=== PATIENT | male | born 1970 | race Caucasian/White ===

== ENCOUNTER → 2019-09-20 09:33 | Outpatient (BNVA) | payer OTHER, SELFPAY | PROVIDERS: Family Provider Nurse Practitioner Family; PCP Nurse Practitioner Family; Visit Provider Nurse Practitioner Family | DX: S61.011A Laceration without foreign body of right thumb without damage to nail, initial encounter (principal); X58.XXXA Exposure to other specified factors, initial encounter | CPT/HCPCS: 73140 ==

== ENCOUNTER 2023-05-15 18:25 | Inpatient (IN) | payer OTHER, SELFPAY ==
[2023-05-15 18:52] VITALS: BP 174/90; PULSE 98; RESP 18; TEMP 36.7; O2SAT 96
--- NOTE | 2023-05-15 18:59 | W.ED.PSYCHS ---
HPI - Psych General: Chief Complaint: Psychiatric Symptoms Stated Complaint: etoh, si Time Seen by Provider: 05/15/23 18:29 Source: patient and EMS Mode of arrival: EMS Limitations: no limitations History of Present Illness: 52-year-old male is brought in by EMS for alcohol intoxication along with suicidality. He had told EMS along with his parents that he just no longer want to live anymore and he wants to kill himself he has no specific plan he tells me that he has been severely depressed and needs to get help. Associated symptoms: Reports depression and suicidal ideation Review of Systems Const: Denies: fever(s), chills, body aches or change in appetite ENMT: Denies: throat pain or dental pain Card: Denies: chest pain Resp: Denies: dyspnea GI: Denies: abdominal pain, nausea, vomiting or diarrhea : Denies: dysuria Musc: Denies: neck pain or back pain Skin/Breast: Denies: rash Neuro: Denies: headache(s) Psych: Reports: depression and suicidal ideation [facility] ED PFSH: Medical History Crushing injury of thumb, right Family History Other Diabetes Social History Smoking and tobacco/nicotine status: current every day tobacco/nicotine user Alcohol intake: current Alcohol intake frequency: 0-2 Drinks per Day Alcohol type: beer Physical Exam Const: COMMON NORMALS: no acute distress, patient oriented x3 and healthy appearing HENMT: COMMON NORMALS: normocephalic and atraumatic HEAD & SCALP: normocephalic and atraumatic Neck/C-Spine: COMMON NORMALS: full ROM and supple Chest: COMMONS NORMALS: normal inspection of the chest Resp: COMMON NORMALS: normal respiratory effort Cardio: COMMON NORMALS: regular rate, regular rhythm and No murmurs present (Cardio) RATE: regular rate RHYTHM: regular rhythm Extremity: COMMON NORMALS: normal to inspection and full ROM Neuro: COMMON NORMALS: patient oriented x3, moves all extremities and no focal motor deficits Psych: COMMON NORMALS: mental status grossly normal, Normal thought process present and cooperative MOOD & AFFECT: Yes depressed mood THOUGHT PROCESS: Normal thought process present THOUGHT CONTENT: Yes Suicidality present Skin: COMMON NORMALS: no rashes or lesions noted and no wounds GENERAL SKIN EXAM: no rashes or lesions noted Course Vital Signs: Vital signs: Vital Signs Temperature 98.1 F 05/15/23 18:52 Pulse Rate 98 05/15/23 18:52 Respiratory Rate 18 05/15/23 18:52 Blood Pressure 174/90 05/15/23 18:52 Pulse Oximetry 96 05/15/23 18:52 Oxygen Delivery Me thod Room Air 05/15/23 18:52 MDM - Psych Medical Decision Making Patient presents for suicidal ideation seen also is intoxicated he is a chronic alcoholic patient was placed under 96-hour hold I have put in CIWA orders. I will recheck his alcohol at 11 patient is able to ambulate and hold a conversation at 414 I spoke to the psychiatrist Dr. Matute will admit after second alcohol redraw. Medical Records I reviewed the patient's medical records. Lab Data I reviewed the patient's lab results. 05/15/23 19:37 05/15/23 19:37 Laboratory Results WBC 10.09 10^3/uL (3.29-11.43) 05/15/23 19:37 RBC 4.30 10^6/uL (3.85-5.65) 05/15/23 19:37 Hgb 14.60 g/dL (11.27-16.99) 05/15/23 19:37 Hct 40.9 % (37-53) 05/15/23 19:37 MCV 95.1 fl (82-101) 05/15/23 19:37 MCH 34.0 pg (27-33) H 05/15/23 19:37 MCHC 35.7 g/dL (30-55) 05/15/23 19:37 RDW 14.0 % (12.1-15.1) 05/15/23 19:37 Plt Count 310 10^3/cmm (157-399) 05/15/23 19:37 MPV 8.6 fL (7.4-10.4) 05/15/23 19:37 Neut % (Auto) 60.5 % 05/15/23 19:37 Lymph % (Auto) 33.4 % 05/15/23 19:37 [place] % (Auto) 5.4 % 05/15/23 19:37 Eos % (Auto) 0.1 % 05/15/23 19:37 Baso % (Auto) 0.4 % 05/15/23 19:37 Neut # (Auto) 6.11 10^3/uL (1.8-7.7) 05/15/23 19:37 Lymph # (Auto) 3.4 10^3/uL (0.8-4.8) 05/15/23 19:37 [place] # (Auto) 0.5 10^3/uL (0.2-0.9) 05/15/23 19:37 Eos # (Auto) 0.0 10^3/uL (0.0-0.8) 05/15/23 19:37 Baso # (Auto) 0.0 10^3/uL (0.0-0.1) 05/15/23 19:37 Nucleated RBC % (auto) 0 % 05/15/23 19:37 Nucleated RBCs # 0.0 /100WBC 05/15/23 19:37 Sodium 141 mmol/L (136-145) 05/15/23 19:37 Potassium 3.0 mmol/L (3.5-5.1) L 05/15/23 19:37 Chloride 98 mmol/L (98-107) 05/15/23 19:37 Carbon Dioxide 31 mmol/L (22-29) H 05/15/23 19:37 Anion Gap 15.0 (5-19) 05/15/23 19:37 BUN 4 mg/dL (6-20) L 05/15/23 19:37 Creatinine 0.7 mg/dL (0.7-1.2) 05/15/23 19:37 GFR Calculation 117.5 mL/min (90-130) 05/15/23 19:37 Glucose 110 mg/dL (65-115) 05/15/23 19:37 Calculated Osmolality 290 mOsm/kg (285-295) 05/15/23 19:37 Calcium 8.1 mg/dL (8.5-10.5) L 05/15/23 19:37 Total Bilirubin 0.7 mg/dL (0.15-1.2) 05/15/23 19:37 AST 50 U/L (0-40) H 05/15/23 19:37 ALT 34 U/L (0-41) 05/15/23 19:37 Alkaline Phosphatase 102 U/L (40-130) 05/15/23 19:37 Total Protein 6.5 g/dL (6.6-8.7) L 05/15/23 19:37 Albumin 3.9 g/dL (3.5-5.2) 05/15/23 19:37 Globulin 2.6 g/dL (1.3-4.6) 05/15/23 19:37 Urine Color Yellow (Yellow) 05/15/23 18:46 Urine Appearance Clear (CLEAR) 05/15/23 18:46 Urine pH 7 (5-7) 05/15/23 18:46 Ur Specific [place] 1.005 (1.005-1.030) 05/15/23 18:46 Urine Protein Neg (Negative) 05/15/23 18:46 Urine Glucose (UA) Norm (Normal) 05/15/23 18:46 Urine Ketones Negative (Negative) 05/15/23 18:46 Urine Blood Neg (Negative) 05/15/23 18:46 Urine Nitrate Negative (Negative) 05/15/23 18:46 Urine Bilirubin Neg (Negative) 05/15/23 18:46 Urine Urobilinogen Norm mg/dL (Negative) 05/15/23 18:46 Ur Leukocyte Esterase Negative (Negative) 05/15/23 18:46 Salicylates < 0.3 mg/dL (3-10) L 05/15/23 19:37 Urine Opiates Screen Negative ng/mL (Negative) 05/15/23 18:46 Acetaminophen < 5.0 ug/mL (10-30) L 05/15/23 19:37 Ur Barbiturates Screen Negative ng/mL (Negative) 05/15/23 18:46 Ur Phencyclidine Scrn Negative ng/mL (Negative) 05/15/23 18:46 Ur Amphetamines Screen Negative ng/mL (Negative) 05/15/23 18:46 U Benzodiazepines Scrn Negative ng/mL (Negative) 05/15/23 18:46 Urine Cocaine Screen Negative ng/mL (Negative) 05/15/23 18:46 U Marijuana (THC) Screen Negative ng/mL (Negative) 05/15/23 18:46 Ethyl Alcohol 414 mg/dL (0-10) H* 05/15/23 19:37 No radiology studies performed this visit Discharge Plan Discharge Patient Disposition: Admitted As Inpatient Admit Provider: Madi Matute Clinical Impression: Suicidal ideation, Alcohol intoxication Condition: Stable Coding Level of Care Code ED [facility] Coordinator for Monae Young
[2023-05-15 19:28] LABS: Add Urine Microscopic? NO; Charge for UA Resulting for Rev
--- NOTE | 2023-05-15 19:45 | PC.NURSE ---
96 HH Pt served with copy of 96 HH by this RN and security. Pt slurring words and repeating himself. I'm an alcoholic, I need help. Pt denies any questions at this time.
[2023-05-15 19:46] LABS: Amphetamines Screen Urine Negative (Negative); Barbiturates Screen Urine Negative (Negative); Benzodiazepines Screen Urine Negative (Negative); Cocaine Screen Urine Negative (Negative); Opiate Screen Urine Negative (Negative); PCP Screen Urine Negative (Negative); THC Screen Urine Negative (Negative)
[2023-05-15 19:48] LABS: Bilirubin Urine Neg (Negative); Blood Urine Neg (Negative); Glucose Urine UA Norm (Normal); Ketones Urine Negative (Negative); Leukocyte Esterase Urine Negative (Negative); Nitrate Urine Negative (Negative); Protein Urine Neg (Negative); Specific Gravity, Urine 1.005 (1.005-1.030); Urine Appearance Clear (CLEAR); Urine Color Yellow (Yellow); Urobilinogen Urine Norm (Negative); pH Urine 7 (5-7)
[2023-05-15 20:03] LABS: Basophils % 0.4 %; Eosinophils % 0.1 %; Hematocrit 40.9 % (37-53); Lymphocytes # 3.4 10^3/uL (0.8-4.8); Lymphocytes % 33.4 %; Mean Corpuscular HGB Conc 35.7 g/dL (30-55); Mean Corpuscular Volume 95.1 fl (82-101); Mean Platelet Volume 8.6 fL (7.4-10.4); Monocytes # 0.5 10^3/uL (0.2-0.9); Monocytes % 5.4 %; Neutrophils # 6.11 10^3/uL (1.8-7.7); Neutrophils % 60.5 %; Nucleated Red Blood Cells % 0 %; Platelet Count 310 10^3/cmm (157-399); White Blood Count 10.09 10^3/uL (3.29-11.43)
[2023-05-15 20:22] LABS: Acetaminophen < 5.0 ug/mL (10-30); Alanine Aminotransferase 34 U/L (0-41); Albumin Level 3.9 g/dL (3.5-5.2); Alkaline Phosphatase 102 U/L (40-130); Aspartate Amino Transferase 50 U/L (0-40); Blood Urea Nitrogen 4 mg/dL (6-20); Calcium 8.1 mg/dL (8.5-10.5); Carbon Dioxide 31 mmol/L (22-29); Chloride 98 mmol/L (98-107); Globulin 2.6 g/dL (1.3-4.6); Glomerular Filtration Rate 117.5 mL/min (90-130); Glucose 110 mg/dL (65-115); Osmolality Calculated 290 mOsm/kg (285-295); Salicylate < 0.3 mg/dL (3-10); Sodium 141 mmol/L (136-145); Total Bilirubin 0.7 mg/dL (0.15-1.2); Total Protein 6.5 g/dL (6.6-8.7)
[2023-05-15 20:24] LABS: Alcohol Level 414 mg/dL (0-10)
[2023-05-15] MEDS: potassium chloride ER 20 mEq Tablet 40 MEQ PO (20:39)
[2023-05-15 22:02] VITALS: BP 154/101; PULSE 84; RESP 18; TEMP 36.6; O2SAT 98
[2023-05-15 23:20] LABS: Alcohol Level 321 mg/dL (0-10)
--- NOTE | 2023-05-15 23:31 | PC.NURSE ---
Dr. Matute contacted and he wants to pt held for 2 more hours and then he can go to NPU. pt will be ready to go at 0130
[2023-05-16 01:50] VITALS: BP 174/90; PULSE 98; RESP 18; TEMP 36.7; O2SAT 96
[2023-05-16] MEDS: ondansetron 4 MG Tablet PO (02:07)
[2023-05-16] MEDS: LORazepam 2 mg Tablet PO ×3 (02:07→16:20)
[2023-05-16 06:00] VITALS: BP 143/96; PULSE 102; RESP 18; TEMP 36.6; O2SAT 100
--- NOTE | 2023-05-16 08:30 | W.PM.NPUH&PS ---
Providers/Chief Complaint Admitting Physician: Madi Matute MD Chief Complaint: etoh, si HPI NPU History of Present Illness Justin Matta is a 52 year old male who presented to the emergency department with the following report: Chief Complaint: Psychiatric Symptoms Stated Complaint: etoh, si Time Seen by Provider: 05/15/23 18:29 Source: patient and EMS Mode of arrival: EMS Limitations: no limitations History of Present Illness: 52-year-old male is brought in by EMS for alcohol intoxication along with suicidality. He had told EMS along with his parents that he just no longer want to live anymore and he wants to kill himself he has no specific plan he tells me that he has been severely depressed and needs to get help. Associated symptoms: Reports depression and suicidal ideation. He was admitted to the neuropsychiatric unit for definitive treatment of those issues. He presented to the hospital with a blood alcohol of 414. He presents today reporting that everything is fine and is ready to go home. Is a very resistant historian answering most questions with a yes no response and continuing to deny any need for us to intervene. Many times his answers called into question whether he was answering the questions with the true or just what would seem like the best answer. We reviewed the fact that he is on a 96-hour hold and that it is our charge to make sure that he is safe for discharge. He reports that he does not remember anything but that his mother must of called EMS/the police last night but he has no recollection of why. He denies any known drug allergies. He denies psychiatric medication. He denied any history of inpatient or outpatient mental health services. He endorsed smoking a pack of cigarettes a day, drinking half pint to a pint of liquor, he denied marijuana or any other illicit drugs. He reports he has used some illicit drugs in the past. He reports he has been to rehab at least once. He endorses multiple DUIs. He endorses some legal peril from those DUIs in the past. But would not elaborate on his legal past. He denied depression or depressive symptoms, anxiety or anxiety symptoms, psychosis or psychotic symptoms, PTSD or PTSD symptoms, OCD here OCD-like symptoms. He denied any suicidal or homicidal ideation and is unsure why he is on a 96-hour hold. In the emergency room however he did advise the physician that he was wanting to and that there is no reason for him to live with a plan to just drink himself to . He denied any need for any medications. We discussed continuing him on the [facility] protocol and evaluating him for safety given the 96-hour hold. Psychiatric history: As above. Substance abuse history: As above. Family history: He denied any mental health, addiction or suicide attempts or completions on either side of the family. Developmental history: He denied any issues at his or during delivery. Reported that he learned to walk and talk and met his developmental milestones on time he denied having any issues requiring speech therapy, learning support, emotional support or special education classes while in school. Psychosocial history: He reports his parents were together when he was born. He reported being once and having 1 child. He denied any history or zoroastrian history. He reported that he last worked at a [employer] and got laid off recently but reported that he was even drinking during that time daily. He reports he lives in a house with his mother and father. Legal history: He reports being in senior living multiple times but did not elaborate. Medical history: He denied any significant medical history. Meds NPU Home Medications Medication Instructions Recorded Confirmed Last Taken Type No Known Home Medications 05/16/23 05/16/23 Unknown History Allergies Allergy/AdvReac Type Severity Reaction Status Date / Time shrimp Allergy unknown Verified 02/22/21 14:07 [facility] NPU PFS: Medical History Crushing injury of thumb, right Family History Other Diabetes Social History Smoking and tobacco/nicotine status: current every day tobacco/nicotine user Alcohol intake: current Alcohol intake frequency: 0-2 Drinks per Day Alcohol type: beer Mental Status Exam MSE Comments: This is a slender white male in hospital scrubs with limited grooming and eye contact. No abnormal movements except for psychomotor retardation and tremulousness. There was some ataxia of gait and somewhat wide-based gait demonstrating his instability. Somewhat cooperative with exam in mild distress. Speech was decreased rate and volume and tremulous. Mood described as fine affect irritable. Thought process linear. Thought content: Patient denied suicidal or homicidal ideation, there were no delusions reported or noted, he denied any auditory visual hallucinations. Attention and concentration were mostly intact and memory seemed mostly reliable but none were formally tested. He is alert and oriented times person and place. Insight, judgment and impulse control are impaired. Vitals/I&O/Wt Last Vital Signs Temp 97.8 F 05/16/23 06:00 Pulse 102 H 05/16/23 06:00 Resp 18 05/16/23 06:00 BP 143/96 05/16/23 06:00 Pulse Ox 100 05/16/23 06:00 O2 Del Method Room Air 05/16/23 06:00 Weight last 48 hrs Weight 72.575 kg Data NPU 05/15/23 19:37 05/15/23 19:37 A&P Assessment and plan (1) Suicidal ideation: (2) Alcohol intoxication: (3) Alcohol use disorder, severe, dependence: (4) Crushing injury of thumb, right: Qualifiers: Encounter type: initial encounter Qualified Code(s): S67.01XA - Crushing injury of right thumb, initial encounter (5) Adjustment disorder with mixed disturbance of emotions and conduct: Plan This is a 52-year-old white male with a reported 30-year history of alcohol use with likely underreporting of volume of use who presented to the emergency department with reports of depression and suicidal thoughts reporting today that he is not interested in treatment and just wants to go home. 1. Continue current medications including thiamine. 2. Continue every 15 minute checks for safety. 3. Encourage individual, group and milieu therapy. 4. Initiate CIWA protocol. 5. Encourage sober living after discharge at the highest level of care to which he is willing to commit. 6. Monitor for safety given 96-hour hold. Involuntary Hold Information 96 Hour Hold: 96 Hour Involuntary Admission: Yes 96 Hour Hold Ending Date: 05/19/23 96 Hour Hold Ending Time: 19:20 Attestations NPU Medical Necessity Statement*: Inpatient hospitalization is medically necessary and the clinically appropriate intervention at this time. We will monitor medications and make changes as indicated. He will be in the hospital for over 2 midnights. Likely length of stay 3 to 5 days. Coding Level of Care Code Acute Code for [facility] Diagnoses Suicidal ideation R45.851 Alcohol intoxication F10.929 Alcohol use disorder, severe, dependence F10.20 Crushing injury of right thumb, initial encounter S67.01XA Encounter type: initial encounter Adjustment disorder with mixed disturbance of emotions and conduct F43.25
[2023-05-16] MEDS: thiamine 100 mg Tablet PO (09:13)
[2023-05-16] MEDS: multivitamin therapeutic Tablet 1 TAB PO (09:13)
[2023-05-16] MEDS: folic acid 1 mg Tablet PO (09:13)
[2023-05-16 14:00] VITALS: BP 192/128; PULSE 117; RESP 16; TEMP 36.3; O2SAT 98
[2023-05-16 20:16] VITALS: BP 181/97; PULSE 101; RESP 18; TEMP 37.2; O2SAT 97
[2023-05-17 06:00] VITALS: BP 137/102; PULSE 108; RESP 18; TEMP 37.2; O2SAT 98
[2023-05-17] MEDS: thiamine 100 mg Tablet PO (09:19)
[2023-05-17] MEDS: folic acid 1 mg Tablet PO (09:19)
[2023-05-17] MEDS: multivitamin therapeutic Tablet 1 TAB PO (09:19)
[2023-05-17 14:00] VITALS: BP 148/102; PULSE 84; RESP 15; TEMP 37.4; O2SAT 98
--- NOTE | 2023-05-17 17:16 | W.PM.NPUPNS ---
Subjective NPU Subjective: Patient presents today continuing to report that he is fine and not needing any of the interventions being provided. Staff report continued irritability and mostly isolation from the rest of the unit. We continue to discuss the importance of making sure that he is physically stable from a withdrawal standpoint prior to discharge. He continues to be resistant versus ambivalent to any possible treatment. Mental Status Exam MSE Comments: This is a slender white male in hospital scrubs with limited grooming and eye contact. No abnormal movements except for psychomotor retardation and tremulousness. There was some ataxia of gait and somewhat wide-based gait demonstrating his instability. Somewhat cooperative with exam in mild distress. Speech was decreased rate and volume and tremulous. Mood described as fine affect irritable. Thought process linear. Thought content: Patient denied suicidal or homicidal ideation, there were no delusions reported or noted, he denied any auditory visual hallucinations. Attention and concentration were mostly intact and memory seemed mostly reliable but none were formally tested. He is alert and oriented times person and place. Insight, judgment and impulse control are impaired. Vitals/I&O/Wt Last Vital Signs Temp 99.3 F 05/17/23 14:00 Pulse 84 05/17/23 14:00 Resp 15 05/17/23 14:00 BP 148/102 05/17/23 14:00 Pulse Ox 98 05/17/23 14:00 O2 Del Method Room Air 05/17/23 06:00 Weight last 48 hrs Weight 72.575 kg Data NPU 05/15/23 19:37 05/15/23 19:37 A&P Assessment and plan (1) Suicidal ideation: (2) Alcohol intoxication: (3) Alcohol use disorder, severe, dependence: (4) Crushing injury of thumb, right: Qualifiers: Encounter type: initial encounter Qualified Code(s): S67.01XA - Crushing injury of right thumb, initial encounter (5) Adjustment disorder with mixed disturbance of emotions and conduct: Plan This is a 52-year-old white male with a reported 30-year history of alcohol use with likely underreporting of volume of use who presented to the emergency department with reports of depression and suicidal thoughts reporting today that he is not interested in treatment and just wants to go home. 1. Continue current medications including thiamine. Start Librium 25 mg p.o. 4 times daily with a plan for a taper secondary to concerns of him not scoring on CIWA but still being tremulous. 2. Continue every 15 minute checks for safety. 3. Encourage individual, group and milieu therapy. 4. Initiate CIWA protocol. 5. Encourage sober living after discharge at the highest level of care to which he is willing to commit. 6. Monitor for safety given 96-hour hold. Involuntary Hold Information 96 Hour Hold: 96 Hour Involuntary Admission: Yes 96 Hour Hold Ending Date: 05/19/23 96 Hour Hold Ending Time: 19:20 Attestations NPU Medical Necessity Statement*: Inpatient hospitalization is medically necessary and the clinically appropriate intervention at this time. We will monitor medications and make changes as indicated. Likely length of stay 2-4 days. Coding Level of Care Code Acute Code for [facility] Fwd Diagnoses Suicidal ideation R45.851 Alcohol intoxication F10.929 Alcohol use disorder, severe, dependence F10.20 Crushing injury of right thumb, initial encounter S67.01XA Encounter type: initial encounter Adjustment disorder with mixed disturbance of emotions and conduct F43.25
[2023-05-17] MEDS: chlordiazePOXIDE 25 mg Capsule PO ×2 (17:31→20:16)
[2023-05-17 20:57] VITALS: BP 120/89; PULSE 90; RESP 18; TEMP 37.3; O2SAT 98
[2023-05-18 06:00] VITALS: BP 131/97; PULSE 88; RESP 16; TEMP 37.7; O2SAT 99
--- NOTE | 2023-05-18 07:42 | P.NPUPN_ITS ---
Subjective NPU 2 Subjective: Patient presented today reporting that he is feeling better and finally is looking better on direct observation. He was much less isolative per staff and interacting on the unit. Contact with family reporting attempts to encourage him to decrease his alcohol consumption reported. He reports he is feeling ready to discharge and we agreed we would not be extending his 96-hour hold meaning he will discharge tomorrow. Mental Status Exam 2 MSE Comments: This is a slender white male in hospital scrubs with limited grooming and eye contact. No abnormal movements except for diminishing psychomotor retardation and less tremulousness. There was less ataxia of gait. Somewhat cooperative with exam in mild distress. Speech was decreased rate and volume. Mood described as fine affect less irritable. Thought process linear. Thought content: Patient denied suicidal or homicidal ideation, there were no delusions reported or noted, he denied any auditory visual hallucinations. Attention and concentration were mostly intact and memory seemed mostly reliable but none were formally tested. He is alert and oriented times person and place. Insight, judgment and impulse control are impaired. Vitals/I&O/Wt Last Vital Signs Temp 99.9 F 05/18/23 06:00 Pulse 88 05/18/23 06:00 Resp 16 05/18/23 06:00 BP 137/97 05/18/23 06:00 Pulse Ox 99 05/18/23 06:00 O2 Del Method Room Air 05/18/23 06:00 Data NPU 05/15/23 19:37 05/15/23 19:37 A&P Assessment and plan (1) Suicidal ideation: (2) Alcohol intoxication: (3) Alcohol use disorder, severe, dependence: (4) Crushing injury of thumb, right: Qualifiers: Encounter type: initial encounter Qualified Code(s): S67.01XA - Crushing injury of right thumb, initial encounter (5) Adjustment disorder with mixed disturbance of emotions and conduct: Plan This is a 52-year-old white male with a reported 30-year history of alcohol use with likely underreporting of volume of use who presented to the emergency department with reports of depression and suicidal thoughts reporting today that he is not interested in treatment and just wants to go home. 1. Continue current medications including thiamine. Started Librium 25 mg p.o. 4 times daily with a plan for a taper secondary to concerns of him not scoring on CIWA. 2. Continue every 15 minute checks for safety. 3. Encourage individual, group and milieu therapy. 4. Initiate CIWA protocol. 5. Encourage sober living after discharge at the highest level of care to which he is willing to commit. 6. Likely plan for discharge tomorrow Involuntary Hold Information 2 96 Hour Hold: 96 Hour Involuntary Admission: Yes 96 Hour Hold Ending Date: 05/19/23 96 Hour Hold Ending Time: 19:20 Attestations NPU 2 Medical Necessity Statement*: Inpatient hospitalization is medically necessary and the clinically appropriate intervention at this time. We will monitor medications and make changes as indicated. Likely length of stay 1-3 days. Coding Level of Care Code Acute Code for [facility] Fwd Diagnoses Suicidal ideation R45.851 Alcohol intoxication F10.929 Alcohol use disorder, severe, dependence F10.20 Crushing injury of right thumb, initial encounter S67.01XA Encounter type: initial encounter Adjustment disorder with mixed disturbance of emotions and conduct F43.25
--- NOTE | 2023-05-18 12:57 | PC.NURSE ---
Patient refused scheduled 1300 librium. He states he doesn't want to take it because he doesn't like how it makes him feel. Dr. Matute was notified. No further orders at this time.
[2023-05-18 14:00] VITALS: BP 125/90; PULSE 97; RESP 16; TEMP 36.6; O2SAT 98
--- NOTE | 2023-05-18 16:26 | PC.NURSE ---
Patient continues to refuse librium
[2023-05-18 20:35] VITALS: BP 118/76; PULSE 84; RESP 18; TEMP 36.9; O2SAT 99
[2023-05-19 06:00] VITALS: BP 128/87; PULSE 61; RESP 18; TEMP 36.6; O2SAT 94
[2023-05-19] MEDS: folic acid 1 mg Tablet PO (08:38)
[2023-05-19] MEDS: chlordiazePOXIDE 25 mg Capsule PO ×2 (08:38→12:16)
[2023-05-19] MEDS: thiamine 100 mg Tablet PO (08:38)
[2023-05-19] MEDS: multivitamin therapeutic Tablet 1 TAB PO (08:38)
[2023-05-19 11:33] VITALS: BP 128/87; PULSE 61; RESP 18; TEMP 36.6; O2SAT 94
--- NOTE | 2023-05-19 11:37 | P.NPUDS_ITS ---
Diagnoses at Discharge Discharge Diagnosis (1) Suicidal ideation: Status: Resolved (2) Alcohol intoxication: Status: Acute (3) Alcohol use disorder, severe, dependence: Status: Acute (4) Crushing injury of thumb, right: Status: Acute Qualifiers: Encounter type: initial encounter Qualified Code(s): S67.01XA - Crushing injury of right thumb, initial encounter (5) Adjustment disorder with mixed disturbance of emotions and conduct: Status: Acute Reason for Visit Reason for Visit: etoh, si Brief History: History of Present Illness Justin Matta is a 52 year old male who presented to the emergency department with the following report: Chief Complaint: Psychiatric Symptoms Stated Complaint: etoh, si Time Seen by Provider: 05/15/23 18:29 Source: patient and EMS Mode of arrival: EMS Limitations: no limitations History of Present Illness: 52-year-old male is brought in by EMS fo r alcohol intoxication along with suicidality. He had told EMS along with his parents that he just no longer want to live anymore and he wants to kill himself he has no specific plan he tells me that he has been severely depressed and needs to get help. Associated symptoms: Reports depression and suicidal ideation. He was admitted to the neuropsychiatric unit for definitive treatment of those issues. He presented to the hospital with a blood alcohol of 414. He presents today reporting that everything is fine and is ready to go home. Is a very resistant historian answering most questions with a yes no response and continuing to deny any need for us to intervene. Many times his answers called into question whether he was answering the questions with the true or just what would seem like the best answer. We reviewed the fact that he is on a 96-hour hold and that it is our charge to make sure that he is safe for discharge. He reports that he does not remember anything but that his mother must of called EMS/the police last night but he has no recollection of why. He denies any known drug allergies. He denies psychiatric medication. He denied any history of inpatient or outpatient mental health services. He endorsed smoking a pack of cigarettes a day, drinking half pint to a pint of liquor, he denied marijuana or any other illicit drugs. He reports he has used some illicit drugs in the past. He reports he has been to rehab at least once. He endorses multiple DUIs. He endorses some legal peril from those DUIs in the past. But would not elaborate on his legal past. He denied depression or depressive symptoms, anxiety or anxiety symptoms, psychosis or psychotic symptoms, PTSD or PTSD symptoms, OCD here OCD-like symptoms. He denied any suicidal or homicidal ideation and is unsure why he is on a 96-hour hold. In the emergency room however he did advise the physician that he was wanting to and that there is no reason for him to live with a plan to just drink himself to . He denied any need for any medications. We discussed continuing him on the [facility] protocol and evaluating him for safety given the 96-hour hold. Psychiatric history: As above. Substance abuse history: As above. Family history: He denied any mental health, addiction or suicide attempts or completions on either side of the family. Developmental history: He denied any issues at his or during delivery. Reported that he learned to walk and talk and met his developmental milestones on time he denied having any issues requiring speech therapy, learning support, emotional support or special education classes while in school. Psychosocial history: He reports his parents were together when he was born. He reported being once and having 1 child. He denied any history or buddhist history. He reported that he last worked at a [employer] and got laid off recently but reported that he was even drinking during that time daily. He reports he lives in a house with his mother and father. Legal history: He reports being in nursing home multiple times but did not elaborate. Medical history: He denied any significant medical history. Hospital Course Hospital Course He slowly acclimated to the individual, group and milieu therapies provided. He presented with significant difficulties secondary to his addiction presenting with near lethal alcohol levels. He continued to be resistant to treatment or treatment recommendations. He allowed his family to be consulted and they r eported continuing to encourage him to decrease or discontinue his alcohol use with limited to no success. He was given Librium to assist with his withdrawal and was able to get through his withdrawal safely. He refused any medications for depression or anxiety and plan appropriate. He worked with the social work team for appropriate aftercare and outpatient appointments reluctantly. He had significant improvement especially with his instability secondary to withdraw and he was able to contract for safety outside of the hospital prior to discharge. During the hospitalization, patient had routine laboratory studies which were within normal limits except for few outliers. Additionally there was a general medical evaluation which was also within normal limits. Discharge Summary: At the time of discharge, he denied lethality or psychosis. Mood and anxiety were well managed. Patient endorsed a plan to avoid all drugs of abuse but seemed noncommittal with the alcohol and to follow-up with the aftercare recommendations of the treatment team. Patient was evaluated and deemed to be absent credible lethality, and was voluntary and denied wanting any continued inpatient hospitalization, so he was discharged. Involuntary Hold Information 96 Hour Hold: 96 Hour Involuntary Admission: Yes 96 Hour Hold Ending Date: 05/19/23 96 Hour Hold Ending Time: 19:20 Mental Status Exam MSE Comments: This is a slender white male in hospital scrubs with limited grooming and eye contact. No abnormal movements except for diminishing psychomotor retardation and less tremulousness. More cooperative with exam in mild distress. Speech was decreased rate and volume. Mood described as fine affect congruent. Thought process linear. Thought content: Patient denied suicidal or homicidal ideation, there were no delusions reported or noted, he denied any auditory visual hallucinations. Attention and concentration were mostly intact and memory seemed mostly reliable but none were formally tested. He is alert and oriented times person and place. Insight, judgment and impulse control are limited. Discharge Data Studies Completed and Pending: Laboratory Results WBC 10.09 10^3/uL (3. 29-11.43) 05/15/23 19:37 RBC 4.30 10^6/uL (3.8 5-5.65) 05/15/23 19:37 Hgb 14.60 g/dL (11.27 -16.99) 05/15/23 19:37 Hct 40.9 % (37-53) 05/15/23 19:37 MCV 95.1 fl (82-101) 05/15/23 19:37 MCH 34.0 pg (27-33) H 05/15/23 19:37 MCHC 35.7 g/dL (30-55) 05/15/23 19:37 RDW 14.0 % (12.1-15.1 ) 05/15/23 19:37 Plt Count 310 10^3/cmm (157 -399) 05/15/23 19:37 MPV 8.6 fL (7.4-10.4) 05/15/23 19:37 Neut % (Auto) 60.5 % 05/15/23 19:37 Lymph % (Auto) 33.4 % 05/15/23 19:37 [place] % (Auto) 5.4 % 05/15/23 19:37 Eos % (Auto) 0.1 % 05/15/23 19:37 Baso % (Auto) 0.4 % 05/15/23 19:37 Neut # (Auto) 6.11 10^3/uL (1.8 -7.7) 05/15/23 19:37 Lymph # (Auto) 3.4 10^3/uL (0.8- 4.8) 05/15/23 19:37 [place] # (Auto) 0.5 10^3/uL (0.2- 0.9) 05/15/23 19:37 Eos # (Auto) 0.0 10^3/uL (0.0- 0.8) 05/15/23 19:37 Baso # (Auto) 0.0 10^3/uL (0.0- 0.1) 05/15/23 19:37 Nucleated RBC % (a uto) 0 % 05/15/23 19:37 Nucleated RBCs # 0.0 /100WBC 05/15/23 19:37 Sodium 141 mmol/L (136-1 45) 05/15/23 19:37 Potassium 3.0 mmol/L (3.5-5 .1) L 05/15/23 19:37 Chloride 98 mmol/L (98-107 ) 05/15/23 19:37 Carbon Dioxide 31 mmol/L (22-29) H 05/15/23 19:37 Anion Gap 15.0 (5-19) 05/15/23 19:37 BUN 4 mg/dL (6-20) L 05/15/23 19:37 Creatinine 0.7 mg/dL (0.7-1. 2) 05/15/23 19:37 GFR Calculation 117.5 mL/min (90- 130) 05/15/23 19:37 Glucose 110 mg/dL (65-115 ) 05/15/23 19:37 Calculated Osmolal ity 290 mOsm/kg (285- 295) 05/15/23 19:37 Calcium 8.1 mg/dL (8.5-10 .5) L 05/15/23 19:37 Total Bilirubin 0.7 mg/dL (0.15-1 .2) 05/15/23 19:37 AST 50 U/L (0-40) H 05/15/23 19:37 ALT 34 U/L (0-41) 05/15/23 19:37 Alkaline Phosphata se 102 U/L (40-130) 05/15/23 19:37 Total Protein 6.5 g/dL (6.6-8.7 ) L 05/15/23 19:37 Albumin 3.9 g/dL (3.5-5.2 ) 05/15/23 19:37 Globulin 2.6 g/dL (1.3-4.6 ) 05/15/23 19:37 Urine Color Yellow (Yellow) 05/15/23 18:46 Urine Appearance Clear (CLEAR) 05/15/23 18:46 Urine pH 7 (5-7) 05/15/23 18:46 Ur Specific Gravit y 1.005 (1.005-1.0 30) 05/15/23 18:46 Urine Protein Neg (Negative) 05/15/23 18:46 Urine Glucose (UA) Norm (Normal) 05/15/23 18:46 Urine Ketones Negative (Negati ve) 05/15/23 18:46 Urine Blood Neg (Negative) 05/15/23 18:46 Urine Nitrate Negative (Negati ve) 05/15/23 18:46 Urine Bilirubin Neg (Negative) 05/15/23 18:46 Urine Urobilinogen Norm mg/dL (Negat akua) 05/15/23 18:46 Ur Leukocyte Megan ase Negative (Negati ve) 05/15/23 18:46 Salicylates < 0.3 mg/dL (3-10 ) L 05/15/23 19:37 Urine Opiates Scre en Negative ng/mL (N egative) 05/15/23 18:46 Acetaminophen < 5.0 ug/mL (10-3 0) L 05/15/23 19:37 Ur Barbiturates Sc reen Negative ng/mL (N egative) 05/15/23 18:46 Ur Phencyclidine S crn Negative ng/mL (N egative) 05/15/23 18:46 Ur Amphetamines Sc reen Negative ng/mL (N egative) 05/15/23 18:46 U Benzodiazepines Scrn Negative ng/mL (N egative) 05/15/23 18:46 Urine Cocaine Scre en Negative ng/mL (N egative) 05/15/23 18:46 U Marijuana (THC) Screen Negative ng/mL (N egative) 05/15/23 18:46 Ethyl Alcohol 321 mg/dL (0-10) H* 05/15/23 22:55 Vitals: Last Vital Signs Temp 97.9 F 05/19/23 11:33 Pulse 61 05/19/23 11:33 Resp 18 05/19/23 11:33 BP 128/87 05/19/23 11:33 Pulse Ox 94 05/19/23 11:33 O2 Del Method Room Air 05/19/23 06:00 Discharge Plan Discharge Patient Disposition: Home Condition: Stable Prescriptions: New Vitamin B-1 (mononitrate) 100 mg Tablet 100 mg PO DAILY 30 Days Qty: 30 1RF Discharge Orders: Discharge Order (Routine); Ordered 05/19/23 Ordered By: Madi Matute Referrals: [facility] [Other] [facility] [Outside] - 05/25/23 9:30 am (Initial assessment for services with Carrie) Diego Escobar FNP [Nurse Practitioner] - Discharge Diet: Regular Discharge Activity: Resume usual activity Patient Instructions: Alcohol Abuse, Chlordiazepoxide (By mouth), Thiamine (By mouth), Suicide Prevention (DC), Opioid Safety Discharge Attestations NPU Time Spent in Discharge Care*: less than 30 min Specific Discharge Activities: Specific discharge activities: educating patient, discussing with supportive employment case manager/social workers/dc planners, documenting/other paperwork and evaluating patient/reviewing data Coding Level of Care Code Acute Code for Chg Fwd Diagnoses Suicidal ideation R45.851 Alcohol intoxication F10.929 Alcohol use disorder, severe, dependence F10.20 Crushing injury of right thumb, initial encounter S67.01XA Encounter type: initial encounter Adjustment disorder with mixed disturbance of emotions and conduct F43.25
== END 2023-05-19 12:59 | disposition home or self-care (01) | DRG 897 ==
LOC: ER 21:06 → ER IP 22:35 → NP 05-16 01:34
PROVIDERS: Emergency Medicine; Admitting Provider Psychiatry & Neurology Psychiatry; Emergency Provider Emergency Medicine; Visit Provider Psychiatry & Neurology Psychiatry
DX: F10.229 Alcohol dependence with intoxication, unspecified (principal); R45.851 Suicidal ideations; Y90.8 Blood alcohol level of 240 mg/100 ml or more; F17.210 Nicotine dependence, cigarettes, uncomplicated; F43.25 Adjustment disorder with mixed disturbance of emotions and conduct
CPT/HCPCS: 36415; 80053; 80306; 80307; 81003; 85025; 96372; 97150; 97165; 99285; J3411; Q0162

== ENCOUNTER 2023-06-19 17:39 | Emergency (ER) | payer SELFPAY ==
[2023-06-19 17:41] VITALS: BP 149/110; PULSE 96; RESP 20; TEMP 36.9; O2SAT 100
--- NOTE | 2023-06-19 18:09 | W.ED.PSYCHS ---
Documented by User: DERIC Tay 06/19/23 19:40 HPI - Psych General: Chief Complaint: Psychiatric Symptoms Stated Complaint: PSYCH EVAL, ETOH Time Seen by Provider: 06/19/23 17:42 Source: patient and EMS Mode of arrival: EMS Limitations: other (intoxication) History of Present Illness: Patient is a 52-year-old male with past medical history of alcohol abuse who presents to the emergency department via EMS due to intoxication onset today. Per EMS, patient had an intervention with family due to the patient's frequent alcohol use, and EMS was called by family to take patient to the emergency department. Reportedly, the patient was compliant with this because he wanted inpatient rehabilitation, but upon arrival patient states that he wants to handle his drinking himself. He states he has been seen at the crisis center before but was only getting Valium which he does not want. Patient is severely intoxicated and tearful, making incomprehensible conversation throughout the duration of the exam. Review of systems is unobtainable due to his intoxication. He denies multiple times that he is suicidal or homicidal, and states he has never been so. He denies any history of suicide attempts or suicidal ideation. He also states he is not seeing or hearing things. He also denies any other drug use. MD complaint: other (Intoxication) History of same: Yes Context: recent alcohol abuse Associated psychiatric symptoms: none Review of Systems General: Reports: Other (Unobtainable due to intoxication) [facility] ED PFSH: Medical History Crushing injury of thumb, right Family History Other Diabetes Social History Smoking and tobacco/nicotine status: current every day tobacco/nicotine user Alcohol intake: current Alcohol intake frequency: 0-2 Drinks per Day Alcohol type: beer Physical Exam Const: COMMON NORMALS: no acute distress and alert EXAM LIMITATIONS: other limitations (Incomprehensible language due to intoxication) GENERAL APPEARANCE: cooperative and odor of alcohol detected ORIENTATION/CONSCIOUSNESS: Yes awake HENMT: COMMON NORMALS: normocephalic, atraumatic, hearing grossly normal bilaterally, external ears normal and Normal external nose present HEAD & SCALP: normocephalic and atraumatic NOSE: Normal external nose present EXTERNAL EAR: Yes external ears normal Eye: COMMON NORMALS: Equal, round and reactive pupils present, EOMs intact bilaterally, no scleral icterus and normal visual zabala by confrontation GENERAL EYE: appearance normal, both eyes and all related structures PUPIL: Yes Equal, round and reactive pupils present Neck/C-Spine: COMMON NORMALS: full ROM, supple and no JVD Resp: COMMON NORMALS: normal respiratory effort, No retractions, No use of accessory muscles and clear to auscultation bilaterally AUSCULTATION: clear to auscultation bilaterally Cardio: COMMON NORMALS: no JVD, regular rate, regular rhythm, S1 normal heart sound present, S2 normal heart sound present, No gallops present (Cardio), No clicks present (Cardio), No murmurs present (Cardio) and No rub (Cardio) RATE: regular rate RHYTHM: regular rhythm HEART SOUNDS: S1 normal heart sound present and S2 normal heart sound present GI: COMMON NORMALS: Soft to palpation, non-tender and no masses PALPATION: Yes Soft to palpation Extremity: COMMON NORMALS: normal to inspection, full ROM and no clubbing, cyanosis or edema Neuro: SENSORIUM/ORIENTATION: Yes alert and Yes Orientation impaired (From intoxication) SPEECH: Other neuro speech findings (And comprehensive) GAIT: Yes Staggering gait present Psych: ATTITUDE: Yes Belligerent attititude/behavior present ACTIVITY/MOTOR BEHAVIOR: Yes psychomotor slowing SPEECH: Yes incoherent MOOD & AFFECT: Yes tearful THOUGHT PROCESS: incoherent THOUGHT CONTENT: No Suicidality present, No Homicidality present and No Hallucination(s) present Skin: COMMON NORMALS: no rashes or lesions noted GENERAL SKIN EXAM: no rashes or lesions noted Course Vital Signs: Vital signs: Vital Signs Temperature 98.4 F 06/19/23 17:41 Pulse Rate 96 06/19/23 17:41 Respiratory Rate 20 H 06/19/23 17:41 Blood Pressure 149/110 06/19/23 17:41 Pulse Oximetry 100 06/19/23 17:41 Oxygen Delivery Me thod Room Air 06/19/23 17:41 MDM - Psych Medical Decision Making This patient was seen and evaluated in the emergency department for acute alcohol intoxication. Patient was brought in by EMS was called with patient's family, as the patient was reportedly willing for ER evaluation and alcohol rehabilitation resources. Patient has significant history of alcohol abuse, and states that he was seen at the crisis center in the past and was only given medication. Otherwise, history and examination were severely limited due to the patient's incomprehensible speech and intoxicated state. However, patient did not express any suicidal or homicidal ideations and denied any history of ever having these thoughts. Although intoxicated, he is able to verbalize that he wants help with alcohol cessation. Labs ordered revealing an alcohol level of 419. After 2 hours, patient is reevaluated and states he wants to leave. Patient's family calls numerous times and asks when he can be discharged, as they will provide him a ride home. I discussed with the patient the plan to follow-up as an outpatient for alcohol rehabilitation through [facility] [place], and although still intoxicated, patient wants to go home. Do not feel that the patient is at risk for any acute alcohol withdrawals or delirium tremens, as he can be safely discharged home with this outpatient plan. Patient will be discharged home once family arrives. Medical Records I reviewed the patient's medical records. Lab Data I reviewed the patient's lab results. 06/19/23 18:06 06/19/23 18:06 Laboratory Results WBC 9.42 10^3/uL (3.29-11.43) 06/19/23 18:06 RBC 4.18 10^6/uL (3.85-5.65) 06/19/23 18:06 Hgb 13.90 g/dL (11.27-16.99) 06/19/23 18:06 Hct 39.5 % (37-53) 06/19/23 18:06 MCV 94.5 fl (82-101) 06/19/23 18:06 MCH 33.3 pg (27-33) H 06/19/23 18:06 MCHC 35.2 g/dL (30-55) 06/19/23 18:06 RDW 14.3 % (12.1-15.1) 06/19/23 18:06 Plt Count 213 10^3/cmm (157-399) 06/19/23 18:06 MPV 8.7 fL (7.4-10.4) 06/19/23 18:06 Neut % (Auto) 45.3 % 06/19/23 18:06 Lymph % (Auto) 47.1 % 06/19/23 18:06 Piatt % (Auto) 6.5 % 06/19/23 18:06 Eos % (Auto) 0.3 % 06/19/23 18:06 Baso % (Auto) 0.5 % 06/19/23 18:06 Neut # (Auto) 4.26 10^3/uL (1.8-7.7) 06/19/23 18:06 Lymph # (Auto) 4.4 10^3/uL (0.8-4.8) 06/19/23 18:06 Piatt # (Auto) 0.6 10^3/uL (0.2-0.9) 06/19/23 18:06 Eos # (Auto) 0.0 10^3/uL (0.0-0.8) 06/19/23 18:06 Baso # (Auto) 0.1 10^3/uL (0.0-0.1) 06/19/23 18:06 Nucleated RBC % (auto) 0 % 06/19/23 18:06 Nucleated RBCs # 0.0 /100WBC 06/19/23 18:06 Sodium 137 mmol/L (136-145) 06/19/23 18:06 Potassium 3.2 mmol/L (3.5-5.1) L 06/19/23 18:06 Chloride 101 mmol/L (98-107) 06/19/23 18:06 Carbon Dioxide 24 mmol/L (22-29) 06/19/23 18:06 Anion Gap 15.2 (5-19) 06/19/23 18:06 BUN 6 mg/dL (6-20) 06/19/23 18:06 Creatinine 0.7 mg/dL (0.7-1.2) 06/19/23 18:06 GFR Calculation 117.5 mL/min (90-130) 06/19/23 18:06 Glucose 105 mg/dL (65-115) 06/19/23 18:06 Calculated Osmolality 282 mOsm/kg (285-295) L 06/19/23 18:06 Calcium 8.2 mg/dL (8.5-10.5) L 06/19/23 18:06 Total Bilirubin 0.5 mg/dL (0.15-1.2) 06/19/23 18:06 AST 36 U/L (0-40) 06/19/23 18:06 ALT 27 U/L (0-41) 06/19/23 18:06 Alkaline Phosphatase 83 U/L (40-130) 06/19/23 18:06 Total Protein 6.3 g/dL (6.6-8.7) L 06/19/23 18:06 Albumin 3.9 g/dL (3.5-5.2) 06/19/23 18:06 Globulin 2.4 g/dL (1.3-4.6) 06/19/23 18:06 Salicylates < 0.3 mg/dL (3-10) L 06/19/23 18:06 Urine Opiates Screen Negative ng/mL (Negative) 06/19/23 18:12 Acetaminophen < 5.0 ug/mL (10-30) L 06/19/23 18:06 Ur Barbiturates Screen Negative ng/mL (Negative) 06/19/23 18:12 Ur Phencyclidine Scrn Negative ng/mL (Negative) 06/19/23 18:12 Ur Amphetamines Screen Negative ng/mL (Negative) 06/19/23 18:12 U Benzodiazepines Scrn Positive ng/mL (Negative) H 06/19/23 18:12 Urine Cocaine Screen Negative ng/mL (Negative) 06/19/23 18:12 U Marijuana (THC) Screen Negative ng/mL (Negative) 06/19/23 18:12 Ethyl Alcohol 419 mg/dL (0-10) H* 06/19/23 18:06 No radiology studies performed this visit Discharge Plan Discharge Patient Disposition: Home Clinical Impression: Alcohol intoxication Qualifiers: Complication of substance-induced condition: uncomplicated Qualified Code(s): F10.920 - Alcohol use, unspecified with intoxication, uncomplicated Condition: Stable Prescriptions: No Action Vitamin B-1 (mononitrate) 100 mg Tablet 100 mg PO DAILY 30 Days Qty: 30 1RF Discharge Orders: Discharge ED (Routine); Ordered 06/19/23 Ordered By: Oc Irving Discharge Diet: Usual diet Discharge Activity: Increase activity as tolerated Patient Instructions: Abuse of Alcohol (ED) Activity Restrictions/Additional Instructions: Please follow-up with [facility] [place] for alcohol abuse rehabilitation. Return if you develop any new concerning symptoms. Coding Level of Care Code ED Cotton Expert for Chg Fwd Documented by User: Josias Waldron DO 06/20/23 05:51 HPI - Psych General: Chief Complaint: Psychiatric Symptoms Stated Complaint: PSYCH EVAL, ETOH Time Seen by Provider: 06/19/23 17:42 PFSH ED PFSH: Medical History Crushing injury of thumb, right Family History Other Diabetes Social History Smoking and tobacco/nicotine status: current every day tobacco/nicotine user Alcohol intake: current Alcohol intake frequency: 0-2 Drinks per Day Alcohol type: beer Course Vital Signs: Vital signs: Vital Signs Temperature 98.4 F 06/19/23 17:41 Pulse Rate 96 06/19/23 17:41 Respiratory Rate 20 H 06/19/23 17:41 Blood Pressure 149/110 06/19/23 17:41 Pulse Oximetry 100 06/19/23 17:41 Oxygen Delivery Me thod Room Air 06/19/23 17:41 MDM - Psych Medical Decision Making This patient was seen and evaluated in the emergency department for acute alcohol intoxication. Patient was brought in by EMS was called with patient's family, as the patient was reportedly willing for ER evaluation and alcohol rehabilitation resources. Patient has significant history of alcohol abuse, and states that he was seen at the crisis center in the past and was only given medication. Otherwise, history and examination were severely limited due to the patient's incomprehensible speech and intoxicated state. However, patient did not express any suicidal or homicidal ideations and denied any history of ever having these thoughts. Although intoxicated, he is able to verbalize that he wants help with alcohol cessation. Labs ordered revealing an alcohol level of 419. After 2 hours, patient is reevaluated and states he wants to leave. Patient's family calls numerous times and asks when he can be discharged, as they will provide him a ride home. I discussed with the patient the plan to follow-up as an outpatient for alcohol rehabilitation through [facility] [place], and although still intoxicated, patient wants to go home. Do not feel that the patient is at risk for any acute alcohol withdrawals or delirium tremens, as he can be safely discharged home with this outpatient plan. Patient will be discharged home once family arrives. Chart reviewed and patient discussed with midlevel. Agree with assessment and plan. Lab Data 06/19/23 18:06 06/19/23 18:06 Laboratory Results WBC 9.42 10^3/uL (3.29-11.43) 06/19/23 18:06 RBC 4.18 10^6/uL (3.85-5.65) 06/19/23 18:06 Hgb 13.90 g/dL (11.27-16.99) 06/19/23 18:06 Hct 39.5 % (37-53) 06/19/23 18:06 MCV 94.5 fl (82-101) 06/19/23 18:06 MCH 33.3 pg (27-33) H 06/19/23 18:06 MCHC 35.2 g/dL (30-55) 06/19/23 18:06 RDW 14.3 % (12.1-15.1) 06/19/23 18:06 Plt Count 213 10^3/cmm (157-399) 06/19/23 18:06 MPV 8.7 fL (7.4-10.4) 06/19/23 18:06 Neut % (Auto) 45.3 % 06/19/23 18:06 Lymph % (Auto) 47.1 % 06/19/23 18:06 Piatt % (Auto) 6.5 % 06/19/23 18:06 Eos % (Auto) 0.3 % 06/19/23 18:06 Baso % (Auto) 0.5 % 06/19/23 18:06 Neut # (Auto) 4.26 10^3/uL (1.8-7.7) 06/19/23 18:06 Lymph # (Auto) 4.4 10^3/uL (0.8-4.8) 06/19/23 18:06 Piatt # (Auto) 0.6 10^3/uL (0.2-0.9) 06/19/23 18:06 Eos # (Auto) 0.0 10^3/uL (0.0-0.8) 06/19/23 18:06 Baso # (Auto) 0.1 10^3/uL (0.0-0.1) 06/19/23 18:06 Nucleated RBC % (auto) 0 % 06/19/23 18:06 Nucleated RBCs # 0.0 /100WBC 06/19/23 18:06 Sodium 137 mmol/L (136-145) 06/19/23 18:06 Potassium 3.2 mmol/L (3.5-5.1) L 06/19/23 18:06 Chloride 101 mmol/L (98-107) 06/19/23 18:06 Carbon Dioxide 24 mmol/L (22-29) 06/19/23 18:06 Anion Gap 15.2 (5-19) 06/19/23 18:06 BUN 6 mg/dL (6-20) 06/19/23 18:06 Creatinine 0.7 mg/dL (0.7-1.2) 06/19/23 18:06 GFR Calculation 117.5 mL/min (90-130) 06/19/23 18:06 Glucose 105 mg/dL (65-115) 06/19/23 18:06 Calculated Osmolality 282 mOsm/kg (285-295) L 06/19/23 18:06 Calcium 8.2 mg/dL (8.5-10.5) L 06/19/23 18:06 Total Bilirubin 0.5 mg/dL (0.15-1.2) 06/19/23 18:06 AST 36 U/L (0-40) 06/19/23 18:06 ALT 27 U/L (0-41) 06/19/23 18:06 Alkaline Phosphatase 83 U/L (40-130) 06/19/23 18:06 Total Protein 6.3 g/dL (6.6-8.7) L 06/19/23 18:06 Albumin 3.9 g/dL (3.5-5.2) 06/19/23 18:06 Globulin 2.4 g/dL (1.3-4.6) 06/19/23 18:06 Salicylates < 0.3 mg/dL (3-10) L 06/19/23 18:06 Urine Opiates Screen Negative ng/mL (Negative) 06/19/23 18:12 Acetaminophen < 5.0 ug/mL (10-30) L 06/19/23 18:06 Ur Barbiturates Screen Negative ng/mL (Negative) 06/19/23 18:12 Ur Phencyclidine Scrn Negative ng/mL (Negative) 06/19/23 18:12 Ur Amphetamines Screen Negative ng/mL (Negative) 06/19/23 18:12 U Benzodiazepines Scrn Positive ng/mL (Negative) H 06/19/23 18:12 Urine Cocaine Screen Negative ng/mL (Negative) 06/19/23 18:12 U Marijuana (THC) Screen Negative ng/mL (Negative) 06/19/23 18:12 Ethyl Alcohol 419 mg/dL (0-10) H* 06/19/23 18:06 Discharge Plan Discharge Patient Disposition: Home Clinical Impression: Alcohol intoxication Qualifiers: Complication of substance-induced condition: uncomplicated Qualified Code(s): F10.920 - Alcohol use, unspecified with intoxication, uncomplicated Condition: Stable Prescriptions: No Action Vitamin B-1 (mononitrate) 100 mg Tablet 100 mg PO DAILY 30 Days Qty: 30 1RF Discharge Orders: Discharge ED (Routine); Ordered 06/19/23 Ordered By: Oc Irving Discharge Diet: Usual diet Discharge Activity: Increase activity as tolerated Patient Instructions: Abuse of Alcohol (ED) Activity Restrictions/Additional Instructions: Please follow-up with [facility] [place] for alcohol abuse rehabilitation. Return if you develop any new concerning symptoms. Coding Level of Care Code ED Cotton Expert for Monae Young
[2023-06-19 18:12] LABS: Basophils # 0.1 10^3/uL (0.0-0.1); Basophils % 0.5 %; Eosinophils % 0.3 %; Hematocrit 39.5 % (37-53); Lymphocytes # 4.4 10^3/uL (0.8-4.8); Lymphocytes % 47.1 %; Mean Corpuscular HGB Conc 35.2 g/dL (30-55); Mean Corpuscular Hemoglobin 33.3 pg (27-33); Mean Corpuscular Volume 94.5 fl (82-101); Mean Platelet Volume 8.7 fL (7.4-10.4); Monocytes # 0.6 10^3/uL (0.2-0.9); Monocytes % 6.5 %; Neutrophils # 4.26 10^3/uL (1.8-7.7); Neutrophils % 45.3 %; Nucleated Red Blood Cells % 0 %; Platelet Count 213 10^3/cmm (157-399); Red Blood Count 4.18 10^6/uL (3.85-5.65); Red Cell Distribution Width 14.3 % (12.1-15.1); White Blood Count 9.42 10^3/uL (3.29-11.43)
[2023-06-19 18:34] LABS: Alanine Aminotransferase 27 U/L (0-41); Albumin Level 3.9 g/dL (3.5-5.2); Alkaline Phosphatase 83 U/L (40-130); Anion Gap 15.2 (5-19); Aspartate Amino Transferase 36 U/L (0-40); Blood Urea Nitrogen 6 mg/dL (6-20); Calcium 8.2 mg/dL (8.5-10.5); Carbon Dioxide 24 mmol/L (22-29); Chloride 101 mmol/L (98-107); Creatinine Clr Calc Pharmacy 125.0147; Globulin 2.4 g/dL (1.3-4.6); Glomerular Filtration Rate 117.5 mL/min (90-130); Glucose 105 mg/dL (65-115); Osmolality Calculated 282 mOsm/kg (285-295); Potassium 3.2 mmol/L (3.5-5.1); Sodium 137 mmol/L (136-145); Total Bilirubin 0.5 mg/dL (0.15-1.2); Total Protein 6.3 g/dL (6.6-8.7)
[2023-06-19 18:35] LABS: Acetaminophen < 5.0 ug/mL (10-30); Alcohol Level 419 mg/dL (0-10); Salicylate < 0.3 mg/dL (3-10)
[2023-06-19 18:42] LABS: Amphetamines Screen Urine Negative (Negative); Barbiturates Screen Urine Negative (Negative); Benzodiazepines Screen Urine Positive (Negative); Cocaine Screen Urine Negative (Negative); Opiate Screen Urine Negative (Negative); PCP Screen Urine Negative (Negative); THC Screen Urine Negative (Negative)
== END 2023-06-19 20:38 | disposition home or self-care (01) ==
PROVIDERS: Emergency Medicine; Emergency Provider Physician Assistant
DX: F10.920 Alcohol use, unspecified with intoxication, uncomplicated (principal); Z72.0 Tobacco use; Y90.8 Blood alcohol level of 240 mg/100 ml or more
CPT/HCPCS: 36415; 80053; 80306; 80307; 85025; 99283

== ENCOUNTER 2023-06-21 15:44 | Emergency (ER) | payer SELFPAY ==
[2023-06-21 15:49] VITALS: BP 119/87; PULSE 106; RESP 16; TEMP 36.9; O2SAT 98
--- NOTE | 2023-06-21 16:02 | W.ED.ALCOHOL ---
HPI - Alcohol General: Chief Complaint: Alcohol Stated Complaint: MHE Time Seen by Provider: 06/21/23 16:00 Source: patient Mode of arrival: ambulatory Limitations: no limitations History of Present Illness: 52-year-old male who has a chronic history of alcoholism. He states that he is trying to figure out a way to do alcohol detox he has no medical complaints at this time he states he drinks alcohol daily he has been seen here recently for the same he denies any SI or HI. Associated symptoms: Deny abdominal pain, nausea or vomiting Review of Systems Const: Denies: fever(s) or chills ENMT: Denies: throat pain or dental pain Card: Denies: chest pain Resp: Denies: dyspnea GI: Denies: abdominal pain, nausea, vomiting or diarrhea Musc: Denies: neck pain or back pain Skin/Breast: Denies: rash Neuro: Denies: headache(s) PFS ED PFSH: Medical History Crushing injury of thumb, right Family History Other Diabetes Social History Smoking and tobacco/nicotine status: current every day tobacco/nicotine user Alcohol intake: current Alcohol intake frequency: 0-2 Drinks per Day Alcohol type: beer Physical Exam Const: COMMON NORMALS: no acute distress and patient oriented x3 HENMT: COMMON NORMALS: normocephalic HEAD & SCALP: normocephalic Eye: COMMON NORMALS: conjunctivae normal CONJUNCTIVA: Yes conjunctivae normal Chest: COMMONS NORMALS: normal inspection of the chest Resp: COMMON NORMALS: normal respiratory effort Extremity: COMMON NORMALS: normal to inspection Neuro: COMMON NORMALS: patient oriented x3 Psych: THOUGHT CONTENT: No Suicidality present and No Homicidality present Course Vital Signs: Vital signs: Vital Signs Temperature 98.4 F 06/21/23 15:49 Pulse Rate 106 H 06/21/23 15:49 Respiratory Rate 16 06/21/23 15:49 Blood Pressure 119/87 06/21/23 15:49 Pulse Oximetry 98 06/21/23 15:49 Oxygen Delivery Me thod Room Air 06/21/23 15:49 MDM - Alcohol Medical Decision Making Patient presents here with alcohol abuse he is not suicidal or homicidal no signs of withdrawals here did give him information for [facility] and informed him he is getting to outpatient detox return if worsening. Medical Records I reviewed the patient's medical records. No radiology studies performed this visit Discharge Plan Discharge Patient Disposition: Home Clinical Impression: Alcohol abuse Condition: Stable Prescriptions: No Action Vitamin B-1 (mononitrate) 100 mg Tablet 100 mg PO DAILY 30 Days Qty: 30 1RF Discharge Orders: Discharge ED (Routine); Ordered 06/21/23 Ordered By: César Herbert Discharge Diet: Advance as tolerated Discharge Activity: Resume usual activity Patient Instructions: Abuse of Alcohol (ED) Coding Level of Care Code ED Sanitation Worker Hosing Machinery for Monae Young
--- NOTE | 2023-06-23 10:12 | DCPLANNER ---
I attempted to call patient on 06/23/23 at 1012 am about his referral for alcohol rehabilitation. Patient did not answer phone and phone is no longer in service.
== END 2023-06-21 16:10 | disposition home or self-care (01) ==
PROVIDERS: Emergency Provider Emergency Medicine
DX: F10.10 Alcohol abuse, uncomplicated (principal); Z72.0 Tobacco use
CPT/HCPCS: 99281

== ENCOUNTER 2024-06-13 14:05 | Day surgery (SDC) | payer OTHER, SELFPAY ==
[2024-06-13] VITALS (10 sets, daily range): BP systolic 145–178; BP diastolic 69–107; PULSE 62–92; RESP 16–18; TEMP 36.6–36.7; O2SAT 98–100; BMI 26.6
--- NOTE | 2024-06-13 | XR_ITS ---
WS: [email or web address] XR finger LT min 2V [id number] REASON FOR EXAM: erica pics FINDINGS: Osteotomy removing distal portion of the distal phalanx of the thumb. XR/XR finger LT min 2V [id number] IMPRESSION: Osteotomy as above.
--- NOTE | 2024-06-13 15:11 | ED_ITS ---
HPI - Wound/Laceration General: Chief Complaint: Wound/Laceration Stated Complaint: L thumb lac Time Seen by Provider: 06/13/24 15:10 History of Present Illness: 53-year-old male patient comes in today for injury to the left distal thumb. Patient was at work and caught the finger between a chain and a sprocket. Patient has a distal amputation of the thumb just above the base of the nail. Patient denies any chronic medical problems. Patient reports last tetanus was 3 months ago. Related Data Previous Rx's ?Medication ?Instructions ?Recorded thiamine mononitrate (vit B1) 100 100 mg PO DAILY 30 d ays #30 tabs 05/19/23 mg tablet (Vitamin B-1 (mononitrate)) Allergies Allergy/AdvReac Type Severity Reaction Status Date / Time shrimp Allergy unknown Verified 06/13/24 14:16 Review of Systems General: Reports: 10 or more systems reviewed and unremarkable except in HPI and below Musc: Reports: other (Left thumb injury) [facility] ED PFSH: Medical History (Updated 06/20/23 @ 00:01 by KRISTEN Chow) Crushing injury of thumb, right Surgical History (Updated 06/13/24 @ 13:33 by SUSANNAH Sylvester) Traumatic amputation of left thumb Family History Other Diabetes Social History Smoking and tobacco/nicotine status: never used tobacco/nicotine Alcohol intake: current Alcohol intake frequency: 0-2 Drinks per Day Alcohol type: beer Physical Exam Const: COMMON NORMALS: alert HENMT: COMMON NORMALS: normocephalic HEAD & SCALP: normocephalic Neck/C-Spine: COMMON NORMALS: full ROM Chest: COMMONS NORMALS: normal inspection of the chest Resp: COMMON NORMALS: normal respiratory effort Cardio: COMMON NORMALS: regular rate and regular rhythm RATE: regular rate RHYTHM: regular rhythm GI: COMMON NORMALS: non-tender Extremity: NARRATIVE EXTREMITY EXAM: Distal amputation left thumb Neuro: SENSORIUM/ORIENTATION: Yes alert Skin: NARRATIVE SKIN EXAM: Amputation left distal thumb Course Vital Signs: Vital signs: Vital Signs Temperature 97.9 F 06/13/24 14:07 Pulse Rate 92 06/13/24 14:07 Blood Pressure 149/102 06/13/24 14:07 Pulse Oximetry 98 06/13/24 14:07 Oxygen Delivery Me thod Room Air 06/13/24 14:07 MDM - Wound/Laceration Medical Decision Making 53-year-old male patient comes in today for injury to the left thumb. Patient was at work and excellently caught his thumb between a chain and sprocket. Patient appears nontoxic. Patient appears no acute distress. Patient's last tetanus was 3 months ago. Differential diagnosis includes not limited to amputation, fracture, avulsion. 161, Dr. Miller, orthopedist on-call, came down and seen the patient after my review. He plans to take patient to the OR for debridement of wound and further treatment. Patient reported understanding agreed to plan. Lab Data Radiology Impressions Finger X-Ray 06/13/24 15:21 Impression: Amputation of a small portion of the distal phalanx of the left thumb. Hand X-Ray 06/13/24 15:21 Impression: Partial amputation of the distal phalanx of the left thumb involving a small portion of the ungual tuft and the soft tissue. All radiology interpretation(s) finalized by discharge Discharge Plan Discharge Condition: Stable Prescriptions: No Action Vitamin B-1 (mononitrate) 100 mg Tablet 100 mg PO DAILY 30 Days Qty: 30 1RF Referrals: ANGELINE Brower, SUSANNAH [Primary Care Provider] - Print Language: Dutch Coding Level of Care Code ED Dealer Sales Manager for Monae Young
--- NOTE | 2024-06-13 15:21 | XR_ITS ---
WS: [id number] Left hand, 3 views, 06/13/2024 Clinical Data: thumb injury Comparison: None. Findings: There is partial amputation of the distal phalanx of the left thumb. A small portion of the ungual tuft and the soft tissue are absent. The majority of the distal phalanx remains intact. The proximal phalanx and first metacarpal are normal. There is an old fracture of the ungual tuft of the distal phalanx of the left fourth finger. XR/XR hand LT min 3V* [id number] Impression: Partial amputation of the distal phalanx of the left thumb involving a small po rtion of the ungual tuft and the soft tissue.
--- NOTE | 2024-06-13 15:21 | XR_ITS ---
WS: [id number] 3 views of the left first finger, 06/13/2024 Clinical Data: thumb distal amputation Comparison: None. Findings: There is a partial amputation of the distal phalanx of the left thumb. There is removal of a small portion of the ungual tuft and of the soft tissue. Most of the distal phalanx remains intact. XR/XR finger LT min 2V [id number] Impression: Amputation of a small portion of the distal phalanx of the left thumb.
--- NOTE | 2024-06-13 16:15 | PM.HP ---
Providers/Chief Complaint Admitting Physician: Codey Miller DO Primary Care Provider: SUSANNAH Patel Chief Complaint: L thumb lac History of Present Illness 53-year-old male patient comes in today for injury to the left distal thumb. Patient was at work and caught the finger between a chain and a sprocket. Patient has a distal amputation of the thumb just above the base of the nail. Patient denies any chronic medical problems. Patient reports last tetanus was 3 months ago. Patient states he last ate around 1130 noon today. Denies any other issues or injuries at this time Review of Systems General: Reports: 10 or more systems reviewed and unremarkable except in HPI and below Medications/Allergies Home Medications ?Medication ?Instructions ?Recorded ?Confirmed ?Last Taken ?Type thiamine mononitrate (vit B1) 100 100 mg PO DAILY 30 days #30 tabs 05/19/23 06/13/24 Unknown Rx mg tablet (Vitamin B-1 (mononitrate)) Allergies Allergy/AdvReac Type Severity Reaction Status Date / Time shrimp Allergy unknown Verified 06/13/24 14:16 PFSH Acute PFSH: Medical History (Updated 06/20/23 @ 00:01 by KRISTEN Chow) Crushing injury of thumb, right Surgical History (Updated 06/13/24 @ 13:33 by SUSANNAH Sylvester) Traumatic amputation of left thumb Family History Other Diabetes Social History Smoking and tobacco/nicotine status: never used tobacco/nicotine Alcohol intake: current Alcohol intake frequency: 0-2 Drinks per Day Alcohol type: beer Vitals/I&O/Wt Last Vital Signs Temp 97.9 F 06/13/24 14:07 Pulse 92 06/13/24 14:07 BP 149/102 06/13/24 14:07 Pulse Ox 98 06/13/24 14:07 O2 Del Method Room Air 06/13/24 14:07 Weight last 48 hrs Weight 180 lb Physical Exam Narrative: Examination left hand demonstrates patient has a traumatic fingertip amputation at the left thumb just distal to the base of the nail matrix. Distal phalanx exposed with straight cross-sectional. Transverse guillotine amputation around the distal phalanx stump. Distal phalanx is exposed along the soft tissue. Oozing noted at the tip. Significant tenderness palpation and pain at the distal phalanx. He can gently flex and extend his thumb. Data Xray Ortho: Radiologist's impression: Ordering Provider/Ordering MD: Ej Stewart NP Date of Service: 06/13/24 Procedure(s): XR hand LT min 3V* 57627 Accession Number(s): [id number] Report Number: [id number] WS: [id number] Left hand, 3 views, 06/13/2024 Clinical Data: thumb injury Comparison: None. Findings: There is partial amputation of the distal phalanx of the left thumb. A small portion of the ungual tuft and the soft tissue are absent. The majority of the distal phalanx remains intact. The proximal phalanx and first metacarpal are normal. There is an old fracture of the ungual tuft of the distal phalanx of the left fourth finger. XR/XR hand LT min 3V* 03640 Impression: Partial amputation of the distal phalanx of the left thumb involving a small portion of the ungual tuft and the soft tissue. Ordering Provider/Ordering MD: Ej Stewart NP Date of Service: 06/13/24 Procedure(s): XR finger LT min 2V 96059 Accession Number(s): [id number] Report Number: [id number] WS: [id number] 3 views of the left first finger, 06/13/2024 Clinical Data: thumb distal amputation Comparison: None. Findings: There is a partial amputation of the distal phalanx of the left thumb. There is removal of a small portion of the ungual tuft and of the soft tissue. Most of the distal phalanx remains intact. XR/XR finger LT min 2V [id number] Impression: Amputation of a small portion of the distal phalanx of the left thumb. A&P Assessment and plan (1) Crushing injury of thumb, right: Qualifiers: Encounter type: initial encounter Qualified Code(s): S67.01XA - Crushing injury of right thumb, initial encounter (2) Traumatic amputation of left thumb: Qualifiers: Encounter type: initial encounter Qualified Code(s): S68.012A - Complete traumatic metacarpophalangeal amputation of left thumb, initial encounter Plan X-rays reviewed Traumatic finger tip amputation to the left thumb Plan to take to the OR urgently this evening for a left thumb irrigation and debridement with revision amputation Patient at this point time has not exposed distal phalanx with prominent bony prominence with a transection of the fingertip of the left thumb just distal to the nail matrix. At this point in time we talked about treatment options in detail given the open inherent nature as well as the bone being exposed would recommend taking this back to the OR for left thumb irrigation and debridement with revision amputation. We talked about his options here given this is a thumb we cannot do a full-blown revision amputation and actually would lose some of his function as this would have to be taken into the IP joint and loss of flexion extension of the IP joint which would inhibit some functionality mobility I feel as though given the transection nature of this being. Cross-sectional I think this can granulate in nicely once the bone is trimmed flush with the soft tissue envelope which we talked about plan will be for this to heal by secondary intention with daily Vaseline gauze changes. At this point in time patient understands and agrees with current plan. All questions answered. He understands the ins and outs procedure the risk benefits complication alternatives surgery. Risk of surgery include but limb not limited to make a better make it worse, infection, persistent surgery, nail deformity, loss of function of thumb persistent pain. Understanding risk of surgery patient elects proceed all questions answered at this time. He did eat 1130 he is willing to do local anesthesia if necessary to have surgery down this evening. Patient understands and agrees with current plan. All questions answered. His tetanus is up-to-date received antibiotics in the emergency department we will get him added on the surgery schedule today. PDMP PDMP Reviewed: Not Reviewed Attestations Medical Necessity Statement*: Traumatic left thumb fingertip amputation Coding Level of Care Code Acute Code for [facility] Fwd Diagnoses Crushing injury of right thumb, initial encounter S67.01XA Encounter type: initial encounter Traumatic amputation of left thumb, initial encounter S68.012A Encounter type: initial encounter Time Spent (min) 45
[2024-06-13] MEDS: morphine 4 mg/mL SDV 1 mL IM (16:21)
[2024-06-13] MEDS: ceFAZolin 3,000 MG in sodium chloride 0.9% (plus) 100 ML 200 MG IV (16:21)
[2024-06-13] MEDS: nicotine 14 mg Patch 1 PATCH TRANSDERMA (16:50)
[2024-06-13] MEDS: acetaminophen 1,000 MG/100 ML PIGGYBACK 400 MG IV (19:09)
[2024-06-13] MEDS: ketorolac 30 mg/mL INJ IVP (19:09)
[2024-06-13] MEDS: ceFAZolin 2,000 MG in sodium chloride 0.9% (plus) 50 ML 100 MG IV (19:33)
[2024-06-13] MEDS: neomycin-poly-bacitracin oint 28 gm 1 APPLIC TOPICAL (20:01)
[2024-06-13] MEDS: lidocaine 2% INJ 20 mL (20:02)
[2024-06-13] MEDS: ROPivacaine 0.5% SDV 30 mL 150 MG INJECTION (20:02)
--- NOTE | 2024-06-13 20:15 | W.PM.BPON ---
Date of Procedure: [June 13, 2024] Surgeon: [Dr. Paul DO] Back Shoe Cutter(s): [Alverto joseph PA-C] Procedure(s) performed: [Left thumb irrigation and debridement and revision amputation] Findings of the procedure(s): [Traumatic amputation of distal phalanx of left thumb. Procedure went well and as planned] Estimated blood loss: [5 ml] Specimen(s) removed: [N/A] Post-operative diagnosis: [Traumatic amputation of distal phalanx of left thumb]
[2024-06-13] MEDS: HYDROcodone-acetaminophen 5-325 mg Tablet 2 TAB PO (20:35)
--- NOTE | 2024-06-13 20:38 | PM.OP ---
Operative Report Date of procedure: June 13, 2024 Pre-op diagnosis: Left thumb traumatic fingertip amputation Post-op diagnosis: Same with exposed bone Post-op findings: See operative report narrative Procedure done: Left thumb irrigation and debridement with revision amputation Implants: None Specimens removed/disposition: Distal phalanx bone removed to make flush with skin Surgeon: Codey Miller DO Spares Scheduler: Alverto Miller PA-C: PA was necessary for assistance in this case with hand positioning to execute the procedure, retraction and protection of neurovascular structures as well as to assist with wound closure and dressing application. Anesthesia: Local Estimated blood loss: 5mL 10min IV fluids: 200mL Complications: none Findings: See operative report narrative Condition: stable Disposition: same day Brief History: Patient is a 53-year-old male who sustained a traumatic left thumb amputation at the fingertip. This transected the distal aspect of the distal phalanx as well as a. Guillotine amputation with exposed tissue and prominent bone. At this point time we talked about treatment options in detail plan would be given this is thumb to maintain as much length as possible as a revision amputation for complete coverage I suspect what actually require removal at the interphalangeal joint I feel this could be or by secondary intention once the bone is flushed with soft tissue as a result we document this in detail and through shared decision making patient elects proceed with a left thumb irrigation debridement with revision amputation. He understands the ins and outs procedure risk benefits complication alternatives to surgery and through shared decision make elects proceed with surgical invention. All questions answered at this time. He has eaten and was comfortable with doing a local only anesthesia to perform a digital block of the left thumb as a result we will plan for local only anesthesia. Consent was reviewed and signed with patient the preoperative holding area. Consent that was reviewed and signed correct extremity marked. Procedure: Patient was seen by myself in the emergency department as well as in the preoperative holding area. Consent was reviewed and signed with patient the correct digit was then subsequently marked in extremity. At this point in time he will be a local only anesthesia and as a result he was taken back to the operative suite. He was hooked up to the monitors and monitored by nursing staff. He was kept in the hospital [place] armboard applied to the left upper extremity. At this point in time the dressing was taken down left upper extremity was prepped and draped in standard orthopedic fashion. Final timeout performed. Patient received appropriate preoperative antibiotics. The left thumb was then identified and a local digital block was performed. He tolerated this well without issues or complications once appropriately anesthetized we then utilized an thumb tourniquet to exsanguinate the digit. At this point in time I identified the left thumb I subsequently performed a standard irrigation debridement of the entire soft tissues of any nonviable tissue edges or any dirt and debris. The area of debridement was roughly 1 cm x 1 cm x 0.5 cm. Thorough irrigation was then performed. I then subsequent identified the prominent bony prominence with no soft tissue envelope able to come around this. Patient did have injury to the nail germinal matrix as I look underneath the eponychial fold patient did have considerable loss of any of the residual sterile matrix but at this point time given this is a quarter of the nail was left I left this alone I subsequently utilized a rongeur to the exposed distal phalanx flush with the bone and then utilized a finger rasp to smooth out the edges this was now made slightly flush and receding within the tissues to allow for the tissue to overgrowth of the bone. Once I was satisfied this I brought a mini C arm to confirm a smooth edge and satisfactory bony removal. I then performed thorough irrigation finger tourniquet was removed hemostasis was satisfactory. Thorough irrigation performed. At this point in time I cut Xeroform gauze and placed this underneath the eponychial fold, I utilized Vaseline/triple antibiotic ointment over the residual nail matrix and wound and plan was to heal this by secondary intention this was noted with Vaseline thumb tip and then dressed with Xeroform, 4 x 4's Graeme wrap and Sarmad wrap. Patient was then recovered and taken back to the recovery area in stable condition. Disposition: Patient taken back to recovery in stable condition receive appropriate discharge structure as well as pain medication and p.o. antibiotics. He understands this would be a wound that will be healed by secondary intention and should change these dressings daily standard instructions given. He will follow-up with me in the office in 2 weeks. Patient understands and agrees with current plan. Questions answered.
== END 2024-06-13 20:45 | disposition home or self-care (01) ==
LOC: ER 16:23 → OR 18:33
PROVIDERS: Emergency Provider Nurse Practitioner Family; PCP Nurse Practitioner Family; Visit Provider Student in an Organized Health Care Education/Training Program
PROC: (CPT 26951; principal; 2024-06-13 19:25)
DX: S68.012A Complete traumatic metacarpophalangeal amputation of left thumb, initial encounter (principal); W23.0XXA Caught, crushed, jammed, or pinched between moving objects, initial encounter; Y99.0 Civilian activity done for income or pay
CPT/HCPCS: 26951; 73130; 73140; 76000; J0131; J0690; J1885; J2270; J2795